=== PATIENT | female | born 1970 | race Caucasian/White ===

== ENCOUNTER 2017-07-03 19:33 | Emergency (ER) | payer MEDICAID ==
[2017-07-03 19:33] VITALS: BMI 20.5
[2017-07-03 20:20] VITALS: RESP 16; TEMP 98.1
--- NOTE | 2017-07-03 21:26 | C.PDOC ---
History Of Present Illness 46 year old female with PMHx of diet controlled DM and HTN presents to the ED c/ o headache, productive cough with yellow sputum, chills, congestion for the past day. Patient also reports having 4 episodes of vomiting earlier today, but is able to tolerate PO. Patient denies fever, diarrhea, abdominal pain, recent travel, sick contacts. HPI: Influenza Time Seen by Provider: 07/03/17 21:02 Chief Complaint: Flu-like Symptoms History Per: Patient Exam Limitations: no limitations Have you had recent travel within the past 21 days to any of the following countries: [place], [place], [place] or [place]?: No Onset/Duration Of Symptoms: Days (2) Symptoms include: headache, bodyaches, cough, vomiting Sick Contacts (Context): None Hx Influenza Vaccination: No Past Medical History Reviewed: Historical Data, Nursing Documentation, Vital Signs Vital Signs: Last Vital Signs Temp 98.1 F 07/03/17 20:17 Pulse 88 07/03/17 20:17 Resp 16 07/03/17 20:17 BP 115/84 07/03/17 20:17 Pulse Ox 100 07/03/17 20:17 - Medical History PMH: Diabetes, HTN Surgical History: No Surg Hx - [facility] TETANUS TOXOID ADMINIST (05/21/13) Family History: States: Unknown Family Hx - Social History Hx Tobacco Use: No Hx Alcohol Use: No Hx Substance Use: No - Immunization History Hx Tetanus Toxoid Vaccination: No Hx Influenza Vaccination: No Hx Pneumococcal Vaccination: No Review Of Systems Constitutional: Negative for: Fever, Chills ENT: Positive for: Nose Congestion, Throat Pain Respiratory: Positive for: Cough, Sputum. Negative for: Shortness of Breath Gastrointestinal: Positive for: Vomiting. Negative for: Nausea, Abdominal Pain , Diarrhea Genitourinary: Negative for: Dysuria Skin: Negative for: Rash Neurological: Negative for: Weakness, Numbness Physical Exam - Physical Exam Appears: Non-toxic, In Acute Distress Skin: Normal Color, Warm, Dry Head: Atraumatic, Normacephalic Eye(s): bilateral: Normal Inspection Nose: Discharge, No Deformity, Other (Congested) Oral Mucosa: Moist Throat: Normal, No Erythema, No Exudate Neck: Normal ROM, Supple Chest: Symmetrical Cardiovascular: Rhythm Regular, No Murmur Respiratory: Normal Breath Sounds, No Rales, No Rhonchi, No Wheezing Gastrointestinal/Abdominal: Soft, No Tenderness, No Guarding, No Rebound Extremity: Normal ROM, No Tenderness, No Deformity, No Swelling Neurological/Psych: Oriented x3, Normal Speech, Normal Cognition Gait: Steady Medical Decision Making Medical Decision Making: Plan: * Tamiflu 75 mg PO * Tylenol 650 mg PO - ECG O2 Sat by Pulse Oximetry: 100 (On RA) Pulse Ox Interpretation: Normal Disposition Counseled Patient/Family Regarding: Diagnosis, Need For Followup, Rx Given - Disposition Disposition: HOME/ ROUTINE Disposition Time: 22:10 Condition: GOOD Additional Instructions: Please take Tamiflu as prescribed. Tylenol or Motrin for pain or fever. Bed rest. Follow up with your doctor in 2-3 days. Return to ER for any worse symptoms. Prescriptions: Ondansetron ODT [Zofran ODT] 4 mg PO TID #12 odt Oseltamivir Phosphate [Tamiflu] 75 mg PO BID #9 capsule Instructions: Flu, Adult (DC) Forms: [facility] ([place]), General Discharge Instructions - Clinical Impression Clinical Impression: Influenza-like illness - PA / [employer]AKER [employer]ER / Resident Statement MD/DO has reviewed & agrees with the documentation as recorded. - Scribe Statement The provider has reviewed the documentation as recorded by the Scribe Sanford Zavala All medical record entries made by the Scribe were at my direction and personally dictated by me. I have reviewed the chart and agree that the record accurately reflects my personal performance of the history, physical exam, medical decision making, and the department course for this patient. I have also personally directed, reviewed, and agree with the discharge instructions and disposition.
[2017-07-03 22:19] VITALS: BP 113/76; PULSE 90
[2017-07-05 04:10] VITALS: O2SAT 100
== END 2017-07-03 22:18 | disposition home or self-care (01) ==
LOC: C.ER 19:33
DX: J11.1 Influenza due to unidentified influenza virus with other respiratory manifestations (principal); E11.9 Type 2 diabetes mellitus without complications; I10 Essential (primary) hypertension